=== PATIENT | female | born 1995 | race Hispanic/Latino ===

== ENCOUNTER 2025-09-13 09:29 | Emergency (ER) | payer MEDICAID, OTHER, SELFPAY | END 2025-09-13 11:52 | disposition home or self-care (01) | LOC: ERS 09:29 | DX: S61.432A Puncture wound without foreign body of left hand, initial encounter (principal); S61.431A Puncture wound without foreign body of right hand, initial encounter; W55.03XA Scratched by cat, initial encounter | CPT/HCPCS: 99282 ==